=== PATIENT | male | born 1980 | race Caucasian/White ===

== ENCOUNTER 2024-03-22 13:22 | Outpatient (AMB) | payer BC, SELFPAY ==
--- NOTE | 2024-03-22 13:28 | HO.SPINEOV ---
Intake Visit Reasons: Back pain Intake Note: Mr. Chris is here today c/o back pain. Supervisor [employer] Required: No Assessment & Plan Assessment & Plan (1) Cervical radiculopathy: Code(s): M54.12 - Radiculopathy, cervical region Category: Medical (2) Cervical myelopathy: Code(s): G95.9 - Disease of spinal cord, unspecified Category: Medical Plan Mr Chris is a very nice 43-year-old gentleman with a history of cervical myelopathy, C5-[address] Davis done in 2020, who presents back to the office today for evaluation of ongoing symptoms that have been present now for about 9 or 10 months. What he started to notice originally was that he was having some pain in his neck, that started to radiate down into his arms associated with tingling. His hands are going numb at night. He was also getting pain in the middle of his thoracic spine. These are very similar to the symptoms that he presented with to us right before his original surgery. He had been doing excellent for the 1st few years after surgery but these last 8 or 9 months have been getting progressively more difficult to maintain his usual levels of activity. He is also having trouble sleeping and that he is waking up in the middle of the night in his arms will be numb. This was concerning to him because again it was similar to exactly what he had before his operation a few years back. He went to physical therapy and participated in the exercises and did not feel any significant improvement in his symptoms. Been taking Motrin daily for the last 3 or 4 months. He is getting frustrated with his quality of life and came back to see us for evaluation. Apparently, an MRI had been ordered at his PCP office but unfortunately for whatever reason it was denied. On my exam today, he appears uncomfortable, his strength overall is full, but he does have diminished reflexes at the biceps and triceps. No Alvarado's sign. Negative Tinel's, negative Phalen's sign. Decreased sensation in the C7 dermatome. 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 His x-rays done at [facility] right after surgery showed stable placement of his hardware and fusion site. I doubt there is anything wrong with the fusion site previously so an MRI will be needed to assess for new spinal cord compression and nerve involvement. I suspect C6-7 given his decreased reflexes and sensory changes. Total amount of time spent in this visit was 20 minutes in discussion of symptoms, ordering MRI imaging and subsequent plan of care Burt Davis MD,PhD [facility] Orders: Orders MR cervical spine wo con Today G95.9 - Disease of spinal cord, unspecified, M54.12 - Radiculopathy, cervical region Coding Level of Care Code Est Pt Level 3 (87196) Diagnoses Cervical radiculopathy M54.12 Cervical myelopathy G95.9
== END 2024-03-22 14:03 | disposition home or self-care (01) ==
PROVIDERS: PCP Internal Medicine; Referring Provider Internal Medicine; Visit Provider Physician Assistant
DX: M54.12 Radiculopathy, cervical region (principal); G95.9 Disease of spinal cord, unspecified
CPT/HCPCS: 99213

== ENCOUNTER → 2024-03-22 13:22 | Outpatient (BNVA) | payer BC, SELFPAY | PROVIDERS: PCP Internal Medicine; Visit Provider Physician Assistant ==